=== PATIENT | female | born 2000 | race African-American/Black ===

== ENCOUNTER 2024-10-11 11:33 | Emergency (ER) | payer SELFPAY ==
[2024-10-11] MEDS: Acetaminophen 325 MG Tab PO ONE (12:56)
[2024-10-11 13:03] LABS: APPEARANCE,URINE SLT CLOUDY; BILIRUBIN,URINE NEGATIVE (NEGATIVE); COLOR,URINE YELLOW; GLUCOSE,URINE NEGATIVE (NEGATIVE); KETONES,URINE NEGATIVE (NEGATIVE); LEUKOCYTE ESTERASE,URINE NEGATIVE (NEGATIVE); NITRITE,URINE NEGATIVE (NEGATIVE); OCCULT BLOOD,URINE NEGATIVE (NEGATIVE); PH,URINE 5.5 (5.0-8.0); PROTEIN,URINE NEGATIVE (NEGATIVE); UROBILINOGEN,URINE 0.2 EU/dL (<2.0)
[2024-10-11 13:07] LABS: BASOPHILS ABSOLUTE AUTO 0.04 K/uL (0.00-0.20); BASOPHILS PERCENT AUTO 0.9 % (0.0-1.0); EOSINOPHILS ABSOLUTE AUTO 0.06 K/uL (0.00-0.45); EOSINOPHILS PERCENT AUTO 1.4 % (0.0-6.0); HEMATOCRIT 36.3 % (37.0-47.0); IMMATURE GRAN ABSOLUTE AUTO 0.01 K/uL (0.00-0.05); IMMATURE GRAN PERCENT AUTO 0.2 % (0.0-0.4); LYMPHOCYTES ABSOLUTE AUTO 2.22 K/uL (1.00-4.80); LYMPHOCYTES PERCENT AUTO 52.6 % (24.0-44.0); MEAN CORPUSCULAR HEMOGLOBIN 27.1 pg (28.0-32.0); MEAN CORPUSCULAR HGB CONC 35.8 g/dL (32.0-36.0); MEAN CORPUSCULAR VOLUME 75.6 fL (83.0-99.0); MEAN PLATELET VOLUME 10.8 fL (9.4-12.3); MONOCYTES ABSOLUTE AUTO 0.43 K/uL (0.00-0.80); MONOCYTES PERCENT AUTO 10.2 % (0.0-8.0); NEUTROPHILS ABSOLUTE AUTO 1.46 K/uL (1.80-7.70); NEUTROPHILS PERCENT AUTO 34.7 % (41.0-71.0); PLATELET COUNT,PLT 218 K/uL (150-400); WHITE BLOOD CELL COUNT,WBC 4.22 K/uL (3.9-11.3)
[2024-10-11 13:27] LABS: CREATININE 0.8 mg/dL (0.6-1.0); EST CRCL DRUG DOSING (CG) 86.5 mL/min; POTASSIUM,K 3.8 mmol/L (3.5-5.1)
== END 2024-10-11 15:31 | disposition home or self-care (01) ==
LOC: MW.ED 11:33
DX: O99.891 Other specified diseases and conditions complicating pregnancy (principal); R10.2 Pelvic and perineal pain; O99.330 Smoking (tobacco) complicating pregnancy, unspecified trimester; F17.210 Nicotine dependence, cigarettes, uncomplicated; Z3A.00 Weeks of gestation of pregnancy not specified
CPT/HCPCS: 36415; 76817; 80048; 81003; 81025; 84702; 85025; 99284; A9270; 99283

== ENCOUNTER 2024-10-26 08:59 | Emergency (ER) | payer SELFPAY ==
[2024-10-26] MEDS ORDERED: Sodium Chloride 0.9% 10 ML Syringe FLUSH PRN (09:31)
[2024-10-26] MEDS ORDERED: Sodium Chloride 0.9% 2.5 ML Syringe FLUSH PRN (09:31)
[2024-10-26 09:55] LABS: BASOPHILS ABSOLUTE AUTO 0.02 K/uL (0.00-0.20); BASOPHILS PERCENT AUTO 0.4 % (0.0-1.0); EOSINOPHILS ABSOLUTE AUTO 0.02 K/uL (0.00-0.45); EOSINOPHILS PERCENT AUTO 0.4 % (0.0-6.0); HEMATOCRIT 35.8 % (37.0-47.0); HEMOGLOBIN 12.8 g/dL (12.0-16.0); IMMATURE GRAN ABSOLUTE AUTO 0.01 K/uL (0.00-0.05); IMMATURE GRAN PERCENT AUTO 0.2 % (0.0-0.4); LYMPHOCYTES ABSOLUTE AUTO 1.77 K/uL (1.00-4.80); LYMPHOCYTES PERCENT AUTO 35.2 % (24.0-44.0); MEAN CORPUSCULAR HEMOGLOBIN 26.7 pg (28.0-32.0); MEAN CORPUSCULAR HGB CONC 35.8 g/dL (32.0-36.0); MEAN CORPUSCULAR VOLUME 74.7 fL (83.0-99.0); MEAN PLATELET VOLUME 11.8 fL (9.4-12.3); NEUTROPHILS ABSOLUTE AUTO 2.91 K/uL (1.80-7.70); NEUTROPHILS PERCENT AUTO 57.8 % (41.0-71.0); PLATELET COUNT,PLT 217 K/uL (150-400); RED BLOOD CELL COUNT 4.79 M/uL (4.10-5.30); WHITE BLOOD CELL COUNT,WBC 5.03 K/uL (3.9-11.3)
[2024-10-26 09:59] LABS: APPEARANCE,URINE CLEAR; BILIRUBIN,URINE NEGATIVE (NEGATIVE); COLOR,URINE YELLOW; GLUCOSE,URINE NEGATIVE (NEGATIVE); KETONES,URINE NEGATIVE (NEGATIVE); LEUKOCYTE ESTERASE,URINE NEGATIVE (NEGATIVE); NITRITE,URINE NEGATIVE (NEGATIVE); OCCULT BLOOD,URINE NEGATIVE (NEGATIVE); PROTEIN,URINE NEGATIVE (NEGATIVE); UROBILINOGEN,URINE 0.2 EU/dL (<2.0)
[2024-10-26 10:31] LABS: ALBUMIN 4.1 g/dL (3.4-5.0); BILIRUBIN TOTAL 0.3 mg/dL (0.2-1.0); CALCIUM 8.8 mg/dL (8.5-10.1); CARBON DIOXIDE,CO2 21.3 mmol/L (21.0-32.0); CREATININE 0.7 mg/dL (0.6-1.0); EST CRCL DRUG DOSING (CG) 98.86 mL/min; PROTEIN TOTAL,TP 8.4 g/dL (6.4-8.2)
[2024-10-26 10:46] LABS: INR 0.99 (0.86-1.11)
== END 2024-10-26 14:00 | disposition home or self-care (01) ==
LOC: MW.ED 08:59
DX: O00.01 Abdominal pregnancy with intrauterine pregnancy (principal); O26.891 Other specified pregnancy related conditions, first trimester; R10.30 Lower abdominal pain, unspecified; K62.5 Hemorrhage of anus and rectum; Z75.3 Unavailability and inaccessibility of health-care facilities; Z3A.01 Less than 8 weeks gestation of pregnancy; Z87.891 Personal history of nicotine dependence
CPT/HCPCS: 36415; 76705; 76705-26; 76813; 76816-26; 80053; 81003; 84702; 84703; 85025; 85610; 99284